=== PATIENT | female | born 1985 | race Caucasian/White ===

== ENCOUNTER 2016-10-13 14:13 | Emergency (ER) | payer MEDICAID ==
[2016-10-13 14:13] VITALS: BMI 19.3
[2016-10-13 14:23] VITALS: TEMP 97.9; O2SAT 96
[2016-10-13] MEDS ORDERED: Sodium Chloride 0.9% 1,000 ML IV ONE (15:49)
[2016-10-13] MEDS ORDERED: Morphine 4 MG/ML VIAL ONE (15:58)
[2016-10-13] MEDS ORDERED: Sodium Chloride 0.9% 1,000 ML ONE (15:58)
[2016-10-13 16:01] LABS: BASO % 0.3 % (0.0-2.0); EOS % 0.2 % (0.0-4.0); HEMOGLOBIN 13.5 g/dL (11.0-16.0); LYMPH % 25.1 % (20.0-40.0); MEAN CELL VOLUME 89.2 fL (81.0-99.0); MEAN CORPUSCULAR HEMOGLOBIN 30.4 pg (27.0-31.0); MEAN CORPUSCULAR HGB CONC 34.1 g/dL (33.0-37.0); MEAN PLATELET VOLUME 8.6 fL (7.2-11.7); MONO # 0.5 K/uL (0.0-0.8); MONO % 5.6 % (0.0-10.0); NEUT # 5.6 K/uL (1.8-7.0); NEUT % 68.8 % (50.0-75.0); RBC 4.46 Mil/uL (3.80-5.20); RED CELL DISTRIBUTION WIDTH 12.9 % (11.5-14.5); WHITE BLOOD COUNT 8.1 K/uL (4.8-10.8)
--- NOTE | 2016-10-13 16:03 | C.PDOC ---
History Of Present Illness 30 y/o female, presents to ED with c/o cramping abdominal pain, 10/10, with associated vaginal bleeding. Patient states she is 4 weeks and took medication from [place] to cause termination of , unsure which medication. Patient reports bleeding has been spotting, not heavy. Denies fever, chills, nausea, vomiting. Time Seen by Provider: 10/13/16 14:41 Chief Complaint (Nursing): Abdominal Pain History Per: Patient History/Exam Limitations: no limitations Onset/Duration Of Symptoms: Days Current Symptoms Are (Timing): Still Present Pain Scale Rating Of: 10 Location Of Pain/Discomfort: Diffuse Radiation Of Pain To:: None Quality Of Discomfort: Cramping, "Pain" Associated Symptoms: denies: Fever, Chills, Nausea, Vomiting, Diarrhea, Urinary Symptoms Recent travel outside of the [place]: No Abnormal Vaginal Bleeding: Yes Past Medical History Reviewed: Historical Data, Nursing Documentation, Vital Signs Vital Signs: Last Vital Signs Temp 97.9 F 10/13/16 14:20 Pulse 62 10/13/16 17:30 Resp 18 10/13/16 17:30 BP 109/49 L 10/13/16 17:30 Pulse Ox 96 10/13/16 17:35 - Medical History PMH: Kidney Stones, Chronic Kidney Disease - [facility] Procedures CLOSURE SKIN & SUBCUTANEOUS NEC (07/08/13) INJECT/INFUSE NEC (09/21/13) Family History: States: Unknown Family Hx - Social History Hx Tobacco Use: No Hx Alcohol Use: Yes Hx Substance Use: No - Immunization History Hx Tetanus Toxoid Vaccination: No Hx Influenza Vaccination: No Hx Pneumococcal Vaccination: No Review Of Systems Except As Marked, All Systems Reviewed And Found Negative. Constitutional: Negative for: Fever, Chills Cardiovascular: Negative for: Chest Pain Respiratory: Negative for: Cough, Shortness of Breath Gastrointestinal: Positive for: Abdominal Pain. Negative for: Nausea, Vomiting , Diarrhea Skin: Negative for: Rash Neurological: Negative for: Headache, Dizziness Physical Exam - Physical Exam Appears: Non-toxic, No Acute Distress Skin: Warm, Dry Head: Atraumatic, Normacephalic Oral Mucosa: Moist Chest: Symmetrical Cardiovascular: Rhythm Regular Respiratory: No Rales, No Rhonchi, No Wheezing Gastrointestinal/Abdominal: Soft, Tenderness (diffusely), No Distention, No Guarding, No Rebound Back: Normal Inspection, No CVA Tenderness Extremity: Normal ROM, Capillary Refill (< 2 sec. ) Neurological/Psych: Oriented x3, Normal Speech, Normal Cognition ED Course And Treatment - Laboratory Results Result Diagrams: 10/13/16 15:57 10/13/16 15:57 O2 Sat by Pulse Oximetry: 96 (RA) Pulse Ox Interpretation: Normal - CT Scan/US 1ST TRIMESTER ULTRASOUND Other Rad Studies (CT/US): Read By Radiologist, Radiology Report Reviewed CT/US Interpretation: Findings: The uterus measures approximately 9.7 x 4.8 x 5.8 cm. Anteverted. Cervix length measures approximately 3.2 cm. The gestational sac measures 0.7 cm and is too small for gestational age calculation. 2 mm yolk sac. A pole is not seen at this time. The right ovary measures 3.4 x 2.4 x 3.3 cm. Suspect 2.5 cm right corpus luteal cyst. The left ovary measures 2.2 x 1.2 x 1.1 cm. Blood flow was demonstrated to both ovaries. Small pelvic free fluid. Impression: Intrauterine gestational sac which is too small for gestational age calculation. 2 mm yolk sac evident. A pole is not seen at this time. Recommend correlation with quantitative beta HCG and follow-up as indicated. Suspect 2.5 cm right corpus luteal cyst. Small pelvic free fluid. Progress Note: Morphine, fluids, labs, ultrasound. Medical Decision Making Medical Decision Making: spoke with OB test conductor, agrees with plan of proper termination at [facility] Disposition Counseled Patient/Family Regarding: Studies Performed, Diagnosis, Need For Followup - Disposition Disposition: HOME/ ROUTINE Disposition Time: 17:54 Condition: STABLE Forms: Gen Discharge Inst [place], Work Excuse - POA Present On Arrival: None - Clinical Impression Clinical Impression: failure - Scribe Statement The provider has reviewed the documentation as recorded by the Honorio Nixon Provider Attestation: All medical record entries made by the Honorio were at my direction and personally dictated by me. I have reviewed the chart and agree that the record accurately reflects my personal performance of the history, physical exam, medical decision making, and the department course for this patient. I have also personally directed, reviewed, and agree with the discharge instructions and disposition.
[2016-10-13 16:11] LABS: ALBUMIN 3.9 g/dL (3.5-5.0)
[2016-10-13 16:13] LABS: GFR AFRICAN-AMERICAN > 60; GFR NON-AFRICAN AMERICAN > 60
[2016-10-13 16:14] LABS: ALB/GLOB RATIO 1.1 (1.0-2.1); ALT/SGPT 25 U/L (9-52); AST/SGOT 31 U/L (14-36); BLOOD UREA NITROGEN 13 mg/dL (7-17); CALCIUM 8.9 mg/dl (8.6-10.4)
--- NOTE | 2016-10-13 17:24 | US ---
Indication: and bleeding Comparison: Pelvic ultrasound performed 02/21/14 Technique: Real-time transabdominal pelvic ultrasound was performed. In addition a transvaginal pelvic ultrasound was necessary to better depict pelvic anatomy. Findings: The uterus measures approximately 9.7 x 4.8 x 5.8 cm. Anteverted. Cervix length measures approximately 3.2 cm. The gestational sac measures 0.7 cm and is too small for gestational age calculation. 2 mm yolk sac. A pole is not seen at this time. The right ovary measures 3.4 x 2.4 x 3.3 cm. Suspect 2.5 cm right corpus luteal cyst. The left ovary measures 2.2 x 1.2 x 1.1 cm. Blood flow was demonstrated to both ovaries. Small pelvic free fluid. Impression: Intrauterine gestational sac which is too small for gestational age calculation. 2 mm yolk sac evident. A pole is not seen at this time. Recommend correlation with quantitative beta HCG and follow-up as indicated. Suspect 2.5 cm right corpus luteal cyst. Small pelvic free fluid.
[2016-10-13 17:32] VITALS: BP 109/49; PULSE 62; RESP 18
[2016-10-13 17:50] LABS: HCG,QUALITATIVE URINE POSITIVE (NEGATIVE)
[2016-10-13 17:52] LABS: SQUAMOUS EPITHIAL 8 /hpf (0-5); URINE BILIRUBIN NEGATIVE (NEGATIVE); URINE BLOOD NEGATIVE (NEGATIVE); URINE CLARITY Hazy (Clear); URINE COLOR Yellow (YELLOW); URINE GLUCOSE (UA) NORMAL (Normal); URINE HYALINE CAST 0-2 /lpf (0-2); URINE LEUKOCYTE ESTERASE TRACE Leu/uL (Negative); URINE NITRATE POSITIVE (NEGATIVE); URINE PROTEIN NEGATIVE (NEGATIVE); URINE UROBILINOGEN NORMAL mg/dL (0.2-1.0)
== END 2016-10-13 18:03 | disposition home or self-care (01) ==
LOC: C.ER 14:13
DX: O20.0 Threatened abortion (principal); Z3A.00 Weeks of gestation of pregnancy not specified
CPT/HCPCS: 76805; 76817; 80053; 81001; 84702; 84703; 85025; 86850; 86900; 96361; 96374; 99284; J2270; J7040